=== PATIENT | female | born 1970 | race African-American/Black ===

== ENCOUNTER 2018-01-13 20:49 | Emergency (ER) | payer MEDICAID, OTHER ==
[~2018-01-13] VITALS: Ht 170.2 cm; Wt 99.8 kg
[2018-01-13 21:09] VITALS: BP 121/81
[2018-01-13] MEDS ORDERED: IBUPROFEN600 MG ORAL (21:27)
--- NOTE | 2018-01-13 21:27 | Emergency Room Report ---
History of Present Illness General Chief Complaint: Pain Source: Patient Present Illness [facility] This is a 47-year-old female who presents with chief complaint of bilateral feet pain. 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 She says she has blisters on them. She says she been walking and hurting. No trauma. No fever chills but no nausea no vomiting. Denies any other complaint. Pain is 9 out of 10. Worse with walking. Denies any other complaint. Patient only has socks on. Allergies: Coded Allergies: ASPIRIN (Verified Allergy, Unknown, 01/13/18) Uncoded Allergies: PENICILLIN (Allergy, Unknown, 01/13/18) Patient History Past Medical History: see triage record, old chart reviewed, DM, HTN Past Surgical History: other Pertinent Family History: none Social History: Denies: smoking Last Menstrual Period: n/a Now: No Immunizations: other Reviewed Nursing Documentation: PMH: Agreed; PSxH: Agreed Nursing Documentation-PMH Past Medical History: No History, Except For Hx Hypertension: Yes Hx Diabetes: Yes Review of Systems Eye: Denies: eye pain, blurred vision ENT: Denies: ear pain, nose congestion, throat swelling Respiratory: Denies: cough, shortness of breath Cardiovascular: Denies: chest pain, palpitations Gastrointestinal: Denies: abdominal pain, diarrhea, nausea, vomiting Musculoskeletal: Reports: muscle pain; Denies: back pain, joint pain Skin: Denies: rash Neurological: Denies: headache, numbness Endocrine: Denies: increased thirst, increased urine Hematologic/Lymphatic: Denies: easy bruising All Other Systems: negative except mentioned in HPI Physical Exam Vital Signs Date Time Temp Pulse Resp B/P (MAP) Pulse Ox O2 Delivery O2 Flow Rate FiO2 01/13/18 20:41 97.5 94 16 137/92 98 Room Air vitals normal Sp02 EP Interpretation: reviewed, normal General Appearance: well appearing, no apparent distress, alert Head: normocephalic, atraumatic Eyes: bilateral eye PERRL, bilateral eye EOMI ENT: hearing grossly normal, normal pharynx Neck: full range of motion, supple, no meningismus Respiratory: chest non-tender, lungs clear, normal breath sounds Cardiovascular #1: regular rate, rhythm, no murmur Gastrointestinal: normal bowel sounds, non tender, no mass, no organomegaly, no bruit, non-distended Musculoskeletal: back normal, gait/station normal, normal range of motion, other - The soles of her feet show some yellowing of the skin and callus but no blister. Sensation normal. Pulses normal. Neurologic: alert, oriented x3 Psychiatric: mood/affect normal Skin: warm/dry Medical Decision Making Diagnostic Impression: Primary Impression: Pain in both feet ER Course Patient with bilateral feet pain. No trauma. No evidence of infection. We'll discharge home. Last Vital Signs Date Time Temp Pulse Resp B/P (MAP) Pulse Ox O2 Delivery O2 Flow Rate FiO2 01/13/18 21:09 97.9 98 18 121/81 99 Room Air Status: unchanged Disposition: HOME, SELF-CARE Condition: Stable Scripts Ibuprofen* (MOTRIN*) 600 Mg Tablet 600 MG ORAL THREE TIMES A DAY, #30 TAB 0 Refills Prov: Fan Hatch MD 01/13/18 Additional Instructions: Rest. Elevate leg. Wear shoes. Follow-up with your doctor in 7 days. Return if worse. Fan Hatch MD Jan 13, 2018 21:27
[2018-01-13 21:31] VITALS: BP 131/87
[2018-01-13 22:34] VITALS: BP 131/87
== END 2018-01-13 21:57 | disposition home or self-care (01) ==
LOC: EDBD 20:49 → EMR 21:40
DX: M79.672 Pain in left foot (principal); M79.671 Pain in right foot; E11.9 Type 2 diabetes mellitus without complications; I10 Essential (primary) hypertension; F17.200 Nicotine dependence, unspecified, uncomplicated; Z88.6 Allergy status to analgesic agent
CPT/HCPCS: 99283